=== PATIENT | male | born 1955 | race Caucasian/White ===

== ENCOUNTER 2017-07-04 12:56 | Day surgery (SDC) | payer BC ==
[2017-07-04] MEDS ORDERED: LIDOCAINE 2% MDV (20MG/ML) 20ML VIAL IV ONE (12:57)
[2017-07-04] MEDS ORDERED: PROPOFOL 10 MG/ML VIAL IV ONE (12:57)
--- NOTE | 2017-07-05 12:40 | Operative Note ---
DATE OF SURGERY: 07/04/2017 REFERRING PROVIDER: Shon Sterling MD PREOPERATIVE DIAGNOSIS: History of large tubular adenoma, rule out recurrence. POSTOPERATIVE DIAGNOSES: 1. Melanosis coli. 2. No residual polyp at large ascending colon polypectomy site. 3. Sigmoid diverticulosis. 4. Fair prep. OPERATION: COLONOSCOPY. PROCEDURE: After informed consent was obtained, the patient was placed in the left lateral decubitus position in the endoscopy suite, sedated and monitored by the Department of Anesthesia. Digital rectal exam was unremarkable. A well-lubricated PCF-180 colonoscope was inserted into the rectum and advanced to the cecum. The preparation quality was fair. Numerous areas were lavaged and fluid and stool evacuated. The cecum was unremarkable. The ascending colon revealed an area where there was a previously injected tattoo and scar deformity where the previous polypectomy had been performed. There was no obvious residual polyp identified. Multiple photographs were taken of the area. The remainder of the ascending colon, transverse colon, descending colon, sigmoid colon, and rectum revealed no other abnormalities other than hyperpigmented changes consistent with melanosis coli of mild to moderate degree. There were also mild to moderate sigmoid diverticular changes noted. Forward and J-turn views of the rectum and anorectum were unremarkable. The endoscope was straightened, the rectal ampulla deflated and the endoscope was removed. RECOMMENDATIONS: The patient should resume his medications and should follow a high-fiber diet. Given his prep quality and the polyp history, a repeat exam in 3 years is being recommended. As always, thank you for allowing me to participate in the health care of your patients. CC: Shon Sterling MD [facility]
== END 2017-07-04 14:25 | disposition home or self-care (01) ==
LOC: HOP 12:56
PROVIDERS: ATTEND Internal Medicine Gastroenterology
DX: Z12.11 Encounter for screening for malignant neoplasm of colon (principal); Z86.010 Personal history of colon polyps; K57.30 Diverticulosis of large intestine without perforation or abscess without bleeding; K63.89 Other specified diseases of intestine; I10 Essential (primary) hypertension; E78.00 Pure hypercholesterolemia, unspecified; F41.9 Anxiety disorder, unspecified; F32.9 Major depressive disorder, single episode, unspecified
CPT/HCPCS: 00810; G0105